=== PATIENT | female | born 1995 ===

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

== ENCOUNTER 2017-01-03 17:55 | Emergency (ER) | payer MEDICAID, OTHER ==
[2017-01-03 18:33] VITALS: BP 132/77
--- NOTE | 2017-01-03 18:50 | UC ---
Throat Pain/Nasal Tony HPI - HPI Summary HPI Summary: complaint of cough and ansal congestion that started approx 1 week ago non productive cough coughing fits and feels like she is wheezing sore throat from coughing denies ear pain,headache, fever took some sudafed, acetaminophen and tussin without much relief - History of Current Complaint Chief Complaint: UCGeneralIllness Stated Complaint: RE CK,COUGH, SOB Time Seen by Provider: 01/03/17 18:37 Hx Obtained From: Patient Hx Last Menstrual Period: 12/16/16 - Allergies/Home Medications Allergies/Adverse Reactions: Allergies Allergy/AdvReac Type Severity Reaction Status Date / Time Penicillins Allergy Intermediate Hives Verified 01/03/17 18:33 Home Medications: Home Medications Acetaminophen [Acetaminophen Extra Stren] 500 mg PO DAILY 01/03/17 [History Confirmed 01/03/17] Pseudoephedrine HCL ER TAB* [Sudafed 12 Hour*] 120 mg PO BID 01/03/17 [History Confirmed 01/03/17] PMH/Surg Hx/FS Hx/Imm Hx Previously Healthy: No - viral illness Endocrine History Of: Denies: Diabetes, Thyroid Disease, Hyperthyroidism, Hypothyroidism, Dyslipidemia Cardiovascular History Of: Denies: Cardiac Disorders, Hypertension, Pacemaker/ICD, Myocardial Infarction , Congestive Heart Failure, Atrial Fibrillation, Deep Vein Thrombosis, Bleeding Disorders Respiratory History Of: Denies: COPD, Asthma, Bronchitis, Pneumonia, Pulmonary Embolism GI/ History Of: Denies: Gastroesophageal Reflux, Ulcer, Gastrointestinal Bleed, Gall Bladder Disease, Kidney Stones, Diverticulitis, Renal Disease, Urosepsis Neurological History Of: Reports: Migraine - She is not on medication for her migraines. Denies: TIA, CVA, Dementia, Seizures Psychological History Of: Reports: Anxiety - On no medications at this time. Denies: Depression, Bipolar Disorder, Schizophrenia, Post Traumatic Stress Disorder Cancer History Of: Denies: Lung Cancer, Colorectal Cancer, Breast Cancer, Prostate Cancer, Cervical Cancer Other History Of: Negative For: HIV, Hepatitis B, Hepatitis C, Anticoagulant Therapy - Surgical History Surgical History: None - Family History Known Family History: Positive: Cardiac Disease, Hypertension Negative: Diabetes - Social History Occupation: Employed Full-time Alcohol Use: Rare Substance Use Type: None Smoking Status (MU): Never Smoked Tobacco - Immunization History Most Recent Influenza Vaccination: 08/02/16 Review of Systems Constitutional: Negative Skin: Negative Eyes: Negative ENT: Sore Throat, Nasal Discharge Respiratory: Cough Cardiovascular: Negative Gastrointestinal: Negative Genitourinary: Negative Motor: Negative Neurovascular: Negative Musculoskeletal: Negative Neurological: Negative Psychological: Negative All Other Systems Reviewed And Are Negative: Yes Physical Exam Triage Information Reviewed: Yes Appearance: No Pain Distress, Well-Nourished Vital Signs: Initial Vital Signs Temp 97.9 F 01/03/17 18:30 Pulse 112 01/03/17 18:30 Resp 18 01/03/17 18:30 BP 132/77 01/03/17 18:30 Pulse Ox 100 01/03/17 18:30 Vital Signs Reviewed: Yes Eyes: Positive: Conjunctiva Clear ENT: Positive: Pharynx normal, Nasal congestion, Nasal drainage, TMs normal Neck: Positive: No Lymphadenopathy Respiratory: Positive: Lungs clear, Normal breath sounds, No respiratory distress, No accessory muscle use Cardiovascular: Positive: No Murmur, Pulses Normal, Tachycardia Abdomen Description: Positive: Nontender, Soft Bowel Sounds: Positive: Present Musculoskeletal: Positive: No Edema Neurological Exam: Normal Psychological Exam: Normal Skin Exam: Normal Throat Pain/Nasal Course/Dx - Differential Dx/Diagnosis Differential Diagnosis/HQI/PQRI: URI, Other - bronchitis Provider Diagnoses: URI-viral Discharge - Discharge Plan Condition: Stable Disposition: HOME Prescriptions: Albuterol HFA INHALER* [Ventolin HFA Inhaler*] 2 puff INH Q4H PRN #1 mdi PRN Reason: Cough Benzonatate CAP* [Tessalon CAP*] 100 mg PO TID #30 cap Spacer/Aerosol-Holding Chamber [Aerochamber Mv] 1 mis XX Q4HR #1 mis Patient Education Materials: Upper Respiratory Infection (ED) Referrals: CARLOS El [Primary Care Provider] - Additional Instructions: Use your albuterol inhaler every 4-6 hours when needed for uncontrolled coughing. Increase fluids and rest Take acetaminophen or ibuprofen for fever or pain Please review your discharge instructions. If your symptoms do not improve please call your primary care provider or return to urgent care.
== END 2017-01-03 19:05 | disposition home or self-care (01) ==
LOC: UCCORT 17:55
DX: J06.9 Acute upper respiratory infection, unspecified (principal); Z88.0 Allergy status to penicillin
CPT/HCPCS: 99212; G0463